=== PATIENT | female | born 1980 | race Caucasian/White ===

== ENCOUNTER → 2016-06-26 | Outpatient (CLI) | payer OTHER ==
[~2016-06-26] MED LIST: SERTRALINE HCL50 MG PO; WELLBUTRIN XL150 M1 PO
== END | disposition disaster alternative care site (69) ==
LOC: GRAD 08:47
DX: E01.0 Iodine-deficiency related diffuse (endemic) goiter (principal); R10.31 Right lower quadrant pain; R10.32 Left lower quadrant pain; N85.2 Hypertrophy of uterus; N83.201 Unspecified ovarian cyst, right side
CPT/HCPCS: Q9967

== ENCOUNTER → 2016-08-11 | Day surgery (SDC) | payer OTHER | END | disposition disaster alternative care site (69) | LOC: GPOC 07-31 15:00 → GEND 08:03 | DX: Z76.89 Persons encountering health services in other specified circumstances (principal); Z53.9 Procedure and treatment not carried out, unspecified reason | CPT/HCPCS: J7030 ==

== ENCOUNTER → 2016-08-12 | Day surgery (SDC) | payer OTHER ==
[~2016-08-12] VITALS: Ht 167.6 cm; Wt 64.4 kg
--- NOTE | ~2016-08-12 | OR ---
PATIENT'S NAME: ALHAJI PRESTON [facility] AGE: 36 Y [address] ROOM: [place] [address] LOCATION: GEND ADMIT DATE: 08/12/2016 OR/Procedure Report DISCHARGE DATE: FAMILY PHYSICIAN: Zayra Marquez MD ATTENDING PHYSICIAN: PAVREEN BOYCE SURGEON: Ceci Wheatley MD PROGRAM MANAGER SLP: DATE OF PROCEDURE: 08/12/2016 PROCEDURE PERFORMED: Colonoscopy. INDICATION: Change in bowel habits. MEDICATIONS: Please see anesthesiology record for details. CONSENT: The risks/benefits/alternatives were discussed, and the patient or her power of assistant county attorney expressed understanding and agreed to proceed. Informed consent was obtained and placed on the chart. Time-out was completed prior to starting the procedure. DESCRIPTION OF PROCEDURE: The patient was placed in the left lateral decubitus position. One lead EKG monitoring was used along with intermittent blood pressure monitoring and pulse oximetry. The above medications were given and titrated to response. Once adequate sedation was completed, rectal exam was performed. The colonoscope was then passed through the rectum, into the sigmoid colon. The scope was then passed through the descending, transverse, and ascending colon. The scope was then passed into the cecum. The cecum was identified by the ileocecal valve and appendiceal orifice. The scope was then withdrawn. On withdrawal, the mucosa of the colon was examined. In the rectum, retroflexion was completed. The scope was then withdrawn from the patient. The patient tolerated the procedure well. There were no complications. SUMMARY OF FINDINGS: 1. Normal colonic mucosa from the rectum to the cecum. There were no polyps seen. 2. Internal hemorrhoids, small, nonbleeding. ASSESSMENT AND PLAN: Change in bowel habits: Nothing seen on colonoscopy to explain the patient's symptoms. I suspect she has a component of irritable bowel syndrome and can follow up in the clinic to discuss this further. Given her family history of colon cancer, I would recommend repeat colonoscopy in 5 years. PATIENT'S NAME: ALHAJI PRESTON [facility] AGE: 36 Y [address] ROOM: [place] [address] LOCATION: GEND ADMIT DATE: 08/12/2016 OR/Procedure Report DISCHARGE DATE: FAMILY PHYSICIAN: Zayra Marquez MD ATTENDING PHYSICIAN: PARVEEN BOYCE J MD VIPIN KUMAR/modl /[id number] d: 08/12/16 1236 t: 08/14/16 1358, OPERATIVE SUMMARY
== END | disposition disaster alternative care site (69) ==
LOC: GEND 09:27 → GOPP 09:30
PROC: 0DJD8ZZ Inspection of Lower Intestinal Tract, Via Natural or Artificial Opening Endoscopic (ICD-10-PCS; principal; 2016-08-12)
DX: R19.4 Change in bowel habit (principal); K64.8 Other hemorrhoids; K59.09 Other constipation; F32.9 Major depressive disorder, single episode, unspecified; M54.5 Low back pain; Z80.0 Family history of malignant neoplasm of digestive organs
CPT/HCPCS: J7030